=== PATIENT | female | born 1950 | race Caucasian/White ===

== ENCOUNTER 2018-07-23 10:19 | Emergency (ER) | payer BC, OTHER ==
[~2018-07-23] VITALS: Ht 177.8 cm; Wt 67.6 kg
[2018-07-23 10:24] VITALS: Ht 177.8 cm; Wt 67.6 kg
[2018-07-23 11:11] LABS: BASOPHIL % 0.3 % (0-2); PLATELET COUNT 257 x10^3mcL (130-400); RED CELL DISTRIBUTION WIDTH 12.2 % (11.5-14.5)
[2018-07-23 11:37] LABS: FREE THYROXINE INDEX 4.6 ug/dL (1.4-4.5)
[2018-07-23 11:40] LABS: ALBUMIN 3.5 g/dL (3.4-5.0); ALKALINE PHOSPHATASE 61 U/L (46-116); ALT/SGPT 31 U/L (14-59); AST/SGOT 19 U/L (15-37); BILIRUBIN TOTAL 0.28 mg/dL (0.20-1.00); CALCIUM 8.7 mg/dL (8.5-10.1); CARBON DIOXIDE 29.3 mmol/L (21-32); CHLORIDE SERUM 103 mmol/L (98-107); CHOLESTEROL 157 mg/dL (<200); CREATININE SERUM 0.8 mg/dL (0.6-1.0); GFR1 > 60 mL/min; GLUCOSE SERUM 128 mg/dL (74-106); LIPASE 104 IU/L (73-393); SODIUM SERUM 139 mmol/L (136-145); TOTAL PROTEIN, SERUM 6.8 g/dL (6.4-8.2); TRIGLYCERIDES 129 mg/dL (<150)
[2018-07-23 11:42] LABS: CHOLESTEROL/HDL RATIO 2.5; HDL CHOLESTEROL 64 mg/dL (40-60)
[2018-07-23 11:45] LABS: T3 TOTAL 0.87 ng/mL
[2018-07-23 11:58] LABS: FREE T4 1.43 ng/dL (0.76-1.46)
[2018-07-23 12:57] VITALS: BP 137/82
== END 2018-07-23 12:55 | disposition home or self-care (01) ==
LOC: ED 10:19
PROVIDERS: Specialist
DX: R42 Dizziness and giddiness (principal); Z88.6 Allergy status to analgesic agent; Z90.710 Acquired absence of both cervix and uterus; Z90.89 Acquired absence of other organs; Z98.890 Other specified postprocedural states; Z98.51 Tubal ligation status
CPT/HCPCS: 83880; 84439; J7030